=== PATIENT | female | born 1990 | race African-American/Black ===

== ENCOUNTER 2020-08-17 14:25 | Emergency (ER) | payer BC, OTHER ==
[2020-08-17 15:39] LABS: Bilirubin Neg (Negative); Blood, Urine Negative (Negative); Clarity Clear (Clear); Glucose, Urine (Dipstick) Normal (Negative); Ketone, Urine Negative (Negative); Leukocyte 500 (Negative); Nitrite Negative (Negative); Protein, Urine (Dipstick) 15 mg/dl (Neg-Trace); Specific Gravity, Urine 1.015 (1.002-1.036); Urobilinogen Normal mg/dL (Less than 2); pH, Urine 6.5 (5.0-9.0)
[2020-08-17] MEDS ORDERED: Ondansetron PF 4 MG/2 ML Vial ONE (15:45)
[2020-08-17 15:54] LABS: #Monocytes 0.5 10x3/uL (0.0-1.1); #Neutrophils 5.5 10x3/uL (1.5-8.4); %Basophils 0.4 % (0.0-2.0); %Eosinophils 0.4 % (0.0-6.0); %Lymphocytes 23.2 % (18.0-47.0); %Monocytes 6.5 % (0.0-10.0); %Neutrophils 68.4 % (40.0-75.0); Hemoglobin 13.2 g/dL (12.0-15.5); Mean Corpuscular HGB CONC 33.5 g/dL (32.0-36.0); Mean Corpuscular Hemoglobin 29.9 pg (27.0-33.0); Mean Corpuscular Volume 89.3 fl (81.6-98.3); Mean Platelet Volume 9.2 fl (7.4-10.4); Platelet Count 286 10x3/uL (150-450); RBC Distribution Width 12.5 % (11.5-14.5); Red Blood Cell (RBC) Count 4.41 10x6/uL (3.90-5.03)
[2020-08-17 16:05] LABS: ALT (SGPT) 13 U/L (8-55); AST (SGOT) 15 U/L (5-34); Alkaline Phosphatase 42 U/L (40-110); Anion Gap 11 mmol/L (10-20); BUN (Urea Nitrogen) 6 mg/dL (7.0-18.7); Bilirubin, Total 0.4 mg/dL (0.2-1.2); Calc. Creatinine Clearance 0 mL/min (70-130); Calcium 9.1 mg/dL (7.8-10.44); Carbon Dioxide 23 mmol/L (22-29); Chloride 106 mmol/L (98-107); Globulin 3.3 g/dL (2.4-3.5); Glucose 110 mg/dL (70-105); Potassium 3.9 mmol/L (3.5-5.1); Protein, Total 7.3 g/dL (6.0-8.3); Sodium 136 mmol/L (136-145)
[2020-08-17 16:08] LABS: Bacteria/HPF 2+ HPF (None Seen); RBC/HPF 0-3 HPF (0-3)
[2020-08-17 16:09] LABS: Mucous/LPF 1+ LPF (<2+)
== END 2020-08-17 18:03 | disposition home or self-care (01) ==
LOC: CSHERS 14:25
DX: O21.0 Mild hyperemesis gravidarum (principal); Z3A.10 10 weeks gestation of pregnancy
CPT/HCPCS: 80053; 81003; 81015; 84702; 85025; 96374; J2405

== ENCOUNTER 2020-09-04 15:11 | Emergency (ER) | payer BC, OTHER ==
[2020-09-04 16:00] LABS: Bilirubin Neg (Negative); Blood, Urine Negative (Negative); Clarity Clear (Clear); Glucose, Urine (Dipstick) Normal (Negative); Ketone, Urine 5 mg/dL (Negative); Leukocyte 100 (Negative); Nitrite Negative (Negative); Protein, Urine (Dipstick) Negative (Neg-Trace); Urobilinogen Normal mg/dL (Less than 2)
[2020-09-04 16:10] LABS: Bacteria/HPF Rare-Few HPF (None Seen); RBC/HPF 0-3 HPF (0-3); Squamous Epithelial 0-3 HPF (0-3); WBC/HPF 0-3 HPF (0-3)
[2020-09-04 16:11] LABS: Mucous/LPF Rare LPF (<2+)
[2020-09-04 16:22] LABS: #Eosinphils 0.1 10x3/uL (0.0-0.5); #Monocytes 0.6 10x3/uL (0.0-1.1); #Neutrophils 5.2 10x3/uL (1.5-8.4); %Basophils 0.3 % (0.0-2.0); %Eosinophils 0.7 % (0.0-6.0); %Lymphocytes 22.8 % (18.0-47.0); %Monocytes 7.2 % (0.0-10.0); %Neutrophils 68.1 % (40.0-75.0); Hemoglobin 12.5 g/dL (12.0-15.5); Mean Corpuscular HGB CONC 34.3 g/dL (32.0-36.0); Mean Corpuscular Hemoglobin 30.3 pg (27.0-33.0); Mean Corpuscular Volume 88.1 fl (81.6-98.3); Mean Platelet Volume 9.1 fl (7.4-10.4); Platelet Count 271 10x3/uL (150-450); RBC Distribution Width 12.5 % (11.5-14.5); Red Blood Cell (RBC) Count 4.13 10x6/uL (3.90-5.03); White Blood Cell (WBC) Count 7.6 10x3/uL (3.5-10.5)
[2020-09-04 16:33] LABS: Anion Gap 13 mmol/L (10-20); BUN (Urea Nitrogen) 5 mg/dL (7.0-18.7); Calc. Creatinine Clearance 0 mL/min (70-130); Calcium 8.8 mg/dL (7.8-10.44); Carbon Dioxide 19 mmol/L (22-29); Chloride 106 mmol/L (98-107); Glucose 83 mg/dL (70-105); Potassium 3.9 mmol/L (3.5-5.1); Sodium 134 mmol/L (136-145)
== END 2020-09-04 17:46 | disposition home or self-care (01) ==
LOC: CSHERS 15:11
DX: O23.41 Unspecified infection of urinary tract in pregnancy, first trimester (principal); Z3A.13 13 weeks gestation of pregnancy
CPT/HCPCS: 76815; 80048; 81003; 81015; 84702; 85025

== ENCOUNTER 2020-09-16 11:25 | Emergency (ER) | payer BC, OTHER ==
[2020-09-16] MEDS ORDERED: Acetaminophen 500 MG TAB ONE (12:30)
[2020-09-16 12:36] LABS: #Eosinphils 0.1 10x3/uL (0.0-0.5); #Monocytes 0.5 10x3/uL (0.0-1.1); #Neutrophils 4.9 10x3/uL (1.5-8.4); %Basophils 0.3 % (0.0-2.0); %Eosinophils 1.1 % (0.0-6.0); %Lymphocytes 25.3 % (18.0-47.0); %Monocytes 7.2 % (0.0-10.0); %Neutrophils 65.2 % (40.0-75.0); Bilirubin Neg (Negative); Blood, Urine Negative (Negative); Clarity Clear (Clear); Glucose, Urine (Dipstick) Normal (Negative); Hemoglobin 13.2 g/dL (12.0-15.5); Ketone, Urine Negative (Negative); Leukocyte 100 (Negative); Mean Corpuscular HGB CONC 34.3 g/dL (32.0-36.0); Mean Corpuscular Hemoglobin 30.8 pg (27.0-33.0); Mean Corpuscular Volume 89.7 fl (81.6-98.3); Mean Platelet Volume 9.2 fl (7.4-10.4); Nitrite Negative (Negative); Platelet Count 256 10x3/uL (150-450); Protein, Urine (Dipstick) Negative (Neg-Trace); RBC Distribution Width 12.8 % (11.5-14.5); Red Blood Cell (RBC) Count 4.29 10x6/uL (3.90-5.03); Urobilinogen Normal mg/dL (Less than 2); White Blood Cell (WBC) Count 7.5 10x3/uL (3.5-10.5)
[2020-09-16 12:49] LABS: RBC/HPF 0-3 HPF (0-3); Transitional Epithelial 0-3 HPF (None Seen); WBC/HPF 0-3 HPF (0-3)
[2020-09-16 12:50] LABS: Bacteria/HPF Rare-Few HPF (None Seen); Mucous/LPF Rare LPF (<2+)
[2020-09-16 12:51] LABS: ALT (SGPT) 12 U/L (8-55); AST (SGOT) 16 U/L (5-34); Albumin 3.7 g/dL (3.5-5.0); Alkaline Phosphatase 36 U/L (40-110); Anion Gap 11 mmol/L (10-20); BUN (Urea Nitrogen) 5 mg/dL (7.0-18.7); Bilirubin, Total 0.3 mg/dL (0.2-1.2); Calc. Creatinine Clearance 0 mL/min (70-130); Calcium 8.8 mg/dL (7.8-10.44); Carbon Dioxide 24 mmol/L (22-29); Chloride 106 mmol/L (98-107); Globulin 3.1 g/dL (2.4-3.5); Glucose 87 mg/dL (70-105); Protein, Total 6.8 g/dL (6.0-8.3); Sodium 137 mmol/L (136-145)
== END 2020-09-16 13:24 | disposition home or self-care (01) ==
LOC: CSHERS 11:25
DX: O99.891 Other specified diseases and conditions complicating pregnancy (principal); R10.30 Lower abdominal pain, unspecified; Z3A.16 16 weeks gestation of pregnancy
CPT/HCPCS: 76815; 80053; 81003; 81015; 85025

== ENCOUNTER 2020-10-04 19:00 | Emergency (ER) | payer BC, OTHER | END 2020-10-04 21:35 | disposition home or self-care (01) | LOC: CSHERS 19:00 | DX: O26.892 Other specified pregnancy related conditions, second trimester (principal); R10.9 Unspecified abdominal pain; Z3A.17 17 weeks gestation of pregnancy ==

== ENCOUNTER 2020-10-12 14:31 | Emergency (ER) | payer BC, OTHER ==
[2020-10-12 16:28] LABS: Bilirubin Neg (Negative); Blood, Urine Negative (Negative); Clarity Clear (Clear); Glucose, Urine (Dipstick) Normal (Negative); Ketone, Urine Negative (Negative); Leukocyte 25 (Negative); Nitrite Negative (Negative); Protein, Urine (Dipstick) Negative (Neg-Trace); Urobilinogen Normal mg/dL (Less than 2)
[2020-10-12] MEDS ORDERED: Acetaminophen 500 MG TAB ONE (16:34)
[2020-10-12 16:47] LABS: RBC/HPF 0-3 HPF (0-3)
[2020-10-12 16:49] LABS: Bacteria/HPF Rare-Few HPF (None Seen); Squamous Epithelial 0-3 HPF (0-3); WBC/HPF 0-3 HPF (0-3)
== END 2020-10-12 17:57 | disposition home or self-care (01) ==
LOC: CSHERS 14:31
DX: O26.892 Other specified pregnancy related conditions, second trimester (principal); R10.9 Unspecified abdominal pain; O44.02 Complete placenta previa NOS or without hemorrhage, second trimester; Z3A.18 18 weeks gestation of pregnancy
CPT/HCPCS: 76815; 81003; 81015; 87086

== ENCOUNTER 2020-11-09 22:53 | Day surgery (SDC) | payer BC, OTHER ==
[2020-11-09 23:23] VITALS: BMI 25.9
[2020-11-10] MEDS ORDERED: hydrALAZINE 20 MG/ML VIAL SLOW IVP PRN (00:26)
[2020-11-10 00:34] LABS: Bilirubin Neg (Negative); Blood, Urine Negative (Negative); Clarity Clear (Clear); Glucose, Urine (Dipstick) 100 mg/dL (Negative); Ketone, Urine Negative (Negative); Leukocyte Negative (Negative); Nitrite Negative (Negative); Protein, Urine (Dipstick) Negative (Neg-Trace); Urobilinogen Normal mg/dL (Less than 2)
== END 2020-11-10 01:39 | disposition home or self-care (01) ==
LOC: CSHLD/OP 22:53
PROVIDERS: ATTEND Obstetrics & Gynecology
DX: O44.22 Partial placenta previa NOS or without hemorrhage, second trimester (principal); O32.1XX0 Maternal care for breech presentation, not applicable or unspecified; O60.02 Preterm labor without delivery, second trimester; Z3A.22 22 weeks gestation of pregnancy
CPT/HCPCS: 76815; 81003; 99283

== ENCOUNTER 2021-01-15 15:58 | Day surgery (SDC) | payer BC, OTHER ==
[2021-01-15 16:24] VITALS: BMI 25.0
[2021-01-15] MEDS ORDERED: hydrALAZINE 20 MG/ML VIAL SLOW IVP PRN (17:03)
[2021-01-15] MEDS ORDERED: Acetaminophen 500 MG TAB PO SCH (17:15)
[2021-01-15 20:16] LABS: #Monocytes 0.7 10x3/uL (0.0-1.1); #Neutrophils 5.6 10x3/uL (1.5-8.4); %Basophils 0.4 % (0.0-2.0); %Eosinophils 0.2 % (0.0-6.0); %Lymphocytes 21.5 % (18.0-47.0); %Monocytes 8.8 % (0.0-10.0); %Neutrophils 67.1 % (40.0-75.0); Hemoglobin 12.6 g/dL (12.0-15.5); Mean Corpuscular HGB CONC 34.5 g/dL (32.0-36.0); Mean Corpuscular Hemoglobin 31.1 pg (27.0-33.0); Mean Corpuscular Volume 90.1 fl (81.6-98.3); Mean Platelet Volume 9.9 fl (7.4-10.4); Platelet Count 188 10x3/uL (150-450); RBC Distribution Width 12.9 % (11.5-14.5); Red Blood Cell (RBC) Count 4.05 10x6/uL (3.90-5.03); White Blood Cell (WBC) Count 8.4 10x3/uL (3.5-10.5)
[2021-01-15 20:25] LABS: ALT (SGPT) 8 U/L (8-55); AST (SGOT) 12 U/L (5-34); Albumin 3.3 g/dL (3.5-5.0); Alkaline Phosphatase 56 U/L (40-110); Anion Gap 12 mmol/L (10-20); BUN (Urea Nitrogen) 5 mg/dL (7.0-18.7); Bilirubin, Total 0.4 mg/dL (0.2-1.2); Calc. Creatinine Clearance 126 mL/min (70-130); Calcium 9.1 mg/dL (7.8-10.44); Carbon Dioxide 21 mmol/L (22-29); Chloride 108 mmol/L (98-107); Globulin 3.2 g/dL (2.4-3.5); Glucose 78 mg/dL (70-105); Potassium 3.7 mmol/L (3.5-5.1); Protein, Total 6.5 g/dL (6.0-8.3); Sodium 137 mmol/L (136-145)
== END 2021-01-15 21:55 | disposition home or self-care (01) ==
LOC: CSHLD/OP 15:58
PROVIDERS: ATTEND Student in an Organized Health Care Education/Training Program
DX: O99.891 Other specified diseases and conditions complicating pregnancy (principal); R10.31 Right lower quadrant pain; M25.551 Pain in right hip; O09.213 Supervision of pregnancy with history of pre-term labor, third trimester; Z3A.32 32 weeks gestation of pregnancy
CPT/HCPCS: 36415; 76815; 80053; 85025; 99283

== ENCOUNTER 2021-02-01 13:22 | Observation (INO) | payer BC, OTHER ==
[2021-02-01] MEDS ORDERED: Betamet Acet/Betamet Na Ph 30 MG/5 ML VIAL ONE (15:33)
[2021-02-01 15:38] VITALS: BMI 24.5
[2021-02-01] MEDS ORDERED: hydrALAZINE 20 MG/ML VIAL SLOW IVP PRN (15:48)
[2021-02-01] MEDS ORDERED: Zolpidem Tartrate 5 MG TAB PO PRN (15:48)
[2021-02-01] MEDS ORDERED: Ondansetron PF 4 MG/2 ML Vial IVP PRN (15:48)
[2021-02-01] MEDS ORDERED: Acetaminophen 500 MG TAB PO PRN (15:48)
[2021-02-01] MEDS ORDERED: Lactated Ringer's 1,000 ML IV SCH (16:00)
[2021-02-01] MEDS ORDERED: Penicillin G Potassium 5 MILL.UNITS in Sodium Chloride 0.9% 100 ML IVPB SCH (16:00)
[2021-02-01] MEDS: Betamet Acet/Betamet Na Ph 30 MG/5 ML VIAL IM SCH (16:12)
[2021-02-01 17:59] LABS: SARS-CoV-2 NAA Rapid Test Not Detected (NotDetected)
[2021-02-01 18:44] LABS: Hemoglobin 13.3 g/dL (12.0-15.5); Mean Corpuscular HGB CONC 33.4 g/dL (32.0-36.0); Mean Corpuscular Hemoglobin 30.8 pg (27.0-33.0); Mean Corpuscular Volume 92.1 fl (81.6-98.3); Mean Platelet Volume 9.8 fl (7.4-10.4); Platelet Count 186 10x3/uL (150-450); Red Blood Cell (RBC) Count 4.32 10x6/uL (3.90-5.03)
[2021-02-01] MEDS: Lactated Ringer's 1,000 ML IV SCH (19:34)
[2021-02-02] MEDS: Lactated Ringer's 1,000 ML IV SCH ×2 (08:57→15:37)
[2021-02-02] MEDS: Betamet Acet/Betamet Na Ph 30 MG/5 ML VIAL IM SCH (16:16)
== END 2021-02-02 18:00 | disposition home health service (06) ==
LOC: CSHLD/OP 13:22 → CSHLD 19:57 → INTOOBSV 19:57
PROVIDERS: ADMIT Obstetrics & Gynecology; ATTEND Obstetrics & Gynecology
DX: O60.03 Preterm labor without delivery, third trimester (principal); O46.93 Antepartum hemorrhage, unspecified, third trimester; O99.343 Other mental disorders complicating pregnancy, third trimester; F41.0 Panic disorder [episodic paroxysmal anxiety]; Z3A.34 34 weeks gestation of pregnancy; Z20.822 Contact with and (suspected) exposure to COVID-19; Z87.59 Personal history of other complications of pregnancy, childbirth and the puerperium; Z79.899 Other long term (current) drug therapy; Z91.81 History of falling
CPT/HCPCS: 36415; 59025; 76815; 85027; 86850; 86900; 86901; 87081; 96372; 96374; 99285; G0378; J0702; J2540; J3490; J7120; U0002

== ENCOUNTER 2021-04-07 15:49 | Emergency (ER) | payer BC, OTHER ==
[2021-04-07 16:54] LABS: Bilirubin Neg (Negative); Blood, Urine 250 (Negative); Glucose, Urine (Dipstick) Normal (Negative); Ketone, Urine Negative (Negative); Leukocyte 25 (Negative); Nitrite Negative (Negative); Protein, Urine (Dipstick) 30 mg/dl (Neg-Trace); Specific Gravity, Urine 1.015 (1.002-1.036); Urobilinogen Normal mg/dL (Less than 2)
[2021-04-07 17:02] LABS: Clarity Clear (Clear)
[2021-04-07 17:04] LABS: Bacteria/HPF None Seen HPF (None Seen); RBC/HPF Greater than 50 HPF (0-3); Squamous Epithelial 0-3 HPF (0-3); WBC/HPF 0-3 HPF (0-3)
[2021-04-07 17:27] LABS: #Monocytes 0.4 10x3/uL (0.0-1.1); #Neutrophils 2.1 10x3/uL (1.5-8.4); %Basophils 0.6 % (0.0-2.0); %Eosinophils 0.9 % (0.0-6.0); %Lymphocytes 43.3 % (18.0-47.0); %Monocytes 9.4 % (0.0-10.0); %Neutrophils 45.6 % (40.0-75.0); Hemoglobin 12.8 g/dL (12.0-15.5); Mean Corpuscular HGB CONC 32.9 g/dL (32.0-36.0); Mean Corpuscular Volume 91.1 fl (81.6-98.3); Mean Platelet Volume 9.8 fl (7.4-10.4); Platelet Count 290 10x3/uL (150-450); RBC Distribution Width 12.2 % (11.5-14.5); Red Blood Cell (RBC) Count 4.27 10x6/uL (3.90-5.03); White Blood Cell (WBC) Count 4.7 10x3/uL (3.5-10.5)
== END 2021-04-07 18:27 | disposition home or self-care (01) ==
LOC: CSHERS 15:49
DX: N93.9 Abnormal uterine and vaginal bleeding, unspecified (principal)
CPT/HCPCS: 36415; 76856; 81003; 81015; 85025

== ENCOUNTER 2021-09-15 16:39 | Observation (INO) | payer BC, OTHER ==
[2021-09-15 17:08] LABS: #Basophils 0.1 10x3/uL (0.0-0.2); #Eosinphils 0.2 10x3/uL (0.0-0.5); #Monocytes 0.4 10x3/uL (0.0-1.1); #Neutrophils 2.7 10x3/uL (1.5-8.4); %Basophils 1.1 % (0.0-2.0); %Eosinophils 4.1 % (0.0-6.0); %Lymphocytes 39.2 % (18.0-47.0); %Monocytes 7.8 % (0.0-10.0); %Neutrophils 47.4 % (40.0-75.0); Mean Corpuscular HGB CONC 33.8 g/dL (32.0-36.0); Mean Corpuscular Hemoglobin 30.4 pg (27.0-33.0); Platelet Count 369 10x3/uL (150-450); RBC Distribution Width 12.1 % (11.5-14.5); Red Blood Cell (RBC) Count 4.28 10x6/uL (3.90-5.03); White Blood Cell (WBC) Count 5.7 10x3/uL (3.5-10.5)
[2021-09-15 17:20] LABS: ALT (SGPT) 8 U/L (8-55); AST (SGOT) 15 U/L (5-34); Albumin 4.2 g/dL (3.5-5.0); Alkaline Phosphatase 45 U/L (40-110); Anion Gap 12 mmol/L (10-20); BUN (Urea Nitrogen) 7 mg/dL (7.0-18.7); Bilirubin, Total 0.3 mg/dL (0.2-1.2); Calc. Creatinine Clearance 0 mL/min (70-130); Calcium 9.9 mg/dL (7.8-10.44); Carbon Dioxide 25 mmol/L (22-29); Chloride 104 mmol/L (98-107); Globulin 3.4 g/dL (2.4-3.5); Glucose 114 mg/dL (70-105); Potassium 3.6 mmol/L (3.5-5.1); Protein, Total 7.6 g/dL (6.0-8.3); Sodium 137 mmol/L (136-145)
[2021-09-15 23:20] VITALS: BMI 26.2
[2021-09-16] MEDS ORDERED: Sodium Chloride 0.9% 1,000 ML IV SCH ×2 (00:01→08:15)
[2021-09-16 10:18] LABS: #Basophils 0.1 10x3/uL (0.0-0.2); #Eosinphils 0.2 10x3/uL (0.0-0.5); #Monocytes 0.4 10x3/uL (0.0-1.1); #Neutrophils 2.2 10x3/uL (1.5-8.4); %Basophils 1.5 % (0.0-2.0); %Eosinophils 4.8 % (0.0-6.0); %Lymphocytes 39.5 % (18.0-47.0); %Monocytes 8.4 % (0.0-10.0); %Neutrophils 45.2 % (40.0-75.0); Hemoglobin 12.2 g/dL (12.0-15.5); Mean Corpuscular HGB CONC 34.4 g/dL (32.0-36.0); Mean Corpuscular Hemoglobin 30.2 pg (27.0-33.0); Mean Corpuscular Volume 87.9 fl (81.6-98.3); Mean Platelet Volume 8.9 fl (7.4-10.4); Platelet Count 298 10x3/uL (150-450); RBC Distribution Width 12.2 % (11.5-14.5); Red Blood Cell (RBC) Count 4.04 10x6/uL (3.90-5.03); White Blood Cell (WBC) Count 4.8 10x3/uL (3.5-10.5)
[2021-09-16] MEDS ORDERED: Lidocaine 1% PF 5 ML VIAL ONE (16:02)
[2021-09-16] MEDS ORDERED: Ondansetron PF 4 MG/2 ML Vial ONE ×2 (16:02→17:16)
[2021-09-16] MEDS ORDERED: Fentanyl 100 MCG/2 ML VIAL ONE ×3 (16:02→18:15)
[2021-09-16] MEDS ORDERED: PROPOFOL 20 ML ONE (16:02)
[2021-09-16] MEDS ORDERED: Rocuronium Bromide 10 MG/ML (10ML VIAL) ONE (16:02)
[2021-09-16] MEDS ORDERED: Succinylcholine 200 MG/10 ml SYRINGE FS ONE (16:02)
[2021-09-16] MEDS ORDERED: Famotidine/PF 20 mg/2ml Vial ONE (16:09)
[2021-09-16] MEDS ORDERED: Scopolamine 1.5 mg/72 hour Patch ONE (16:09)
[2021-09-16] MEDS ORDERED: Midazolam HCl 2 mg/2 ml Vial ONE (16:09)
[2021-09-16] MEDS ORDERED: Dexamethasone 20 MG/5 ML VIAL ONE (16:30)
[2021-09-16] MEDS ORDERED: CEFAZOLIN 1 GM VIAL ONE (16:36)
[2021-09-16] MEDS ORDERED: Bupivacaine PF 0.5% 30 ML VIAL ONE (17:13)
[2021-09-16] MEDS ORDERED: EPINEPHrine 1 MG/ML AMP ONE (17:13)
[2021-09-16] MEDS ORDERED: Ketorolac Tromethamine 30 MG/ML VIAL ONE (17:48)
[2021-09-16] MEDS ORDERED: Glycopyrrolate 0.2 MG/ML 5 ML SYRINGE ONE (17:54)
[2021-09-16 19:59] LABS: SARS-CoV-2 PCR by NAA Not Detected (NotDetected)
[2021-09-16 22:15] VITALS: BP 113/63; TEMP 98.4
== END 2021-09-16 20:57 | disposition home or self-care (01) ==
LOC: CSHERS 16:39 → UNDOADMOB 21:18 → INTOOBSV 21:18 → CSHPP 21:18
PROVIDERS: ADMIT Obstetrics & Gynecology; ATTEND Obstetrics & Gynecology
PROC: 0UDB7ZX Extraction of Endometrium, Via Natural or Artificial Opening, Diagnostic (ICD-10-PCS; principal; 2021-09-16)
PROC: 10T24ZZ Resection of Products of Conception, Ectopic, Percutaneous Endoscopic Approach (ICD-10-PCS; 2021-09-16)
DX: O00.101 Right tubal pregnancy without intrauterine pregnancy (principal); O08.1 Delayed or excessive hemorrhage following ectopic and molar pregnancy; Z20.822 Contact with and (suspected) exposure to COVID-19
CPT/HCPCS: 36415; 76856; 80053; 84702; 85025; 86850; 86900; 86901; 88305; 88331; G0378; J0171; J0690; J1100; J1885; J2250; J2405; J2704; J3010; J7050; S0020; S0028; U0003; U0005

== ENCOUNTER 2021-09-23 18:20 | Emergency (ER) | payer BC, OTHER | END 2021-09-23 20:15 | disposition home or self-care (01) | LOC: CSHERS 18:20 | DX: Z48.00 Encounter for change or removal of nonsurgical wound dressing (principal) | CPT/HCPCS: 99283 ==

== ENCOUNTER 2021-10-03 15:00 | Emergency (ER) | payer BC, OTHER ==
[2021-10-03 15:27] LABS: #Monocytes 0.3 10x3/uL (0.0-1.1); #Neutrophils 1.9 10x3/uL (1.5-8.4); %Basophils 0.8 % (0.0-2.0); %Eosinophils 1.1 % (0.0-6.0); %Monocytes 9.4 % (0.0-10.0); %Neutrophils 53.1 % (40.0-75.0); Hemoglobin 10.8 g/dL (12.0-15.5); Mean Corpuscular HGB CONC 33.1 g/dL (32.0-36.0); Mean Corpuscular Hemoglobin 29.9 pg (27.0-33.0); Mean Corpuscular Volume 90.3 fl (81.6-98.3); Mean Platelet Volume 9.1 fl (7.4-10.4); Platelet Count 271 10x3/uL (150-450); RBC Distribution Width 11.9 % (11.5-14.5); Red Blood Cell (RBC) Count 3.61 10x6/uL (3.90-5.03); White Blood Cell (WBC) Count 3.6 10x3/uL (3.5-10.5)
[2021-10-03 15:48] LABS: ALT (SGPT) 7 U/L (8-55); AST (SGOT) 11 U/L (5-34); Albumin 3.5 g/dL (3.5-5.0); Alkaline Phosphatase 43 U/L (40-110); Anion Gap 15 mmol/L (10-20); BUN (Urea Nitrogen) 6 mg/dL (7.0-18.7); Bilirubin, Total 0.3 mg/dL (0.2-1.2); Calc. Creatinine Clearance 0 mL/min (70-130); Calcium 8.2 mg/dL (7.8-10.44); Carbon Dioxide 21 mmol/L (22-29); Chloride 109 mmol/L (98-107); Globulin 2.3 g/dL (2.4-3.5); Glucose 103 mg/dL (70-105); Lipase 19 U/L (8-78); Potassium 3.7 mmol/L (3.5-5.1); Protein, Total 5.8 g/dL (6.0-8.3); Sodium 141 mmol/L (136-145)
[2021-10-03 15:53] LABS: BHCG - Serum POSITIVE (NEGATIVE); Pregs Control Background? CLEAR/WHITE (CLR/WHITE); Pregs Control Bar Appear? YES (CONTROL BAR)
[2021-10-03] MEDS ORDERED: Acetaminophen 500 MG TAB ONE (16:11)
== END 2021-10-03 18:40 | disposition home or self-care (01) ==
LOC: CSHERS 15:00
DX: O21.9 Vomiting of pregnancy, unspecified (principal); O99.891 Other specified diseases and conditions complicating pregnancy; R19.7 Diarrhea, unspecified
CPT/HCPCS: 36415; 80053; 83690; 84702; 84703; 85025; 93005; 99284

== ENCOUNTER 2021-12-24 09:28 | Emergency (ER) | payer OTHER, BC | END 2021-12-24 10:45 | disposition home or self-care (01) | LOC: CSHERS 09:28 | DX: R11.2 Nausea with vomiting, unspecified (principal); R19.7 Diarrhea, unspecified | CPT/HCPCS: 99283 ==

== ENCOUNTER 2022-02-11 18:07 | Emergency (ER) | payer BC, OTHER ==
[2022-02-11 18:35] LABS: Bilirubin Neg (Negative); Blood, Urine Negative (Negative); Clarity Clear (Clear); Glucose, Urine (Dipstick) 100 mg/dL (Negative); Ketone, Urine 5 mg/dL (Negative); Leukocyte Negative (Negative); Nitrite Negative (Negative); Protein, Urine (Dipstick) Negative (Neg-Trace); Specific Gravity, Urine 1.025 (1.002-1.036); Urobilinogen Normal mg/dL (Less than 2)
[2022-02-11 19:27] LABS: #Eosinphils 0.1 10x3/uL (0.0-0.5); #Monocytes 0.6 10x3/uL (0.0-1.1); #Neutrophils 5.3 10x3/uL (1.5-8.4); %Basophils 0.5 % (0.0-2.0); %Eosinophils 1.6 % (0.0-6.0); %Lymphocytes 24.7 % (18.0-47.0); %Monocytes 7.2 % (0.0-10.0); %Neutrophils 65.4 % (40.0-75.0); Hemoglobin 12.5 g/dL (12.0-15.5); Mean Corpuscular HGB CONC 33.8 g/dL (32.0-36.0); Mean Corpuscular Hemoglobin 29.6 pg (27.0-33.0); Mean Corpuscular Volume 87.5 fl (81.6-98.3); Mean Platelet Volume 9.4 fl (7.4-10.4); Platelet Count 303 10x3/uL (150-450); RBC Distribution Width 13.5 % (11.5-14.5); Red Blood Cell (RBC) Count 4.23 10x6/uL (3.90-5.03)
[2022-02-11 19:41] LABS: ALT (SGPT) 8 U/L (8-55); AST (SGOT) 13 U/L (5-34); Albumin 3.8 g/dL (3.5-5.0); Alkaline Phosphatase 38 U/L (40-110); Anion Gap 12 mmol/L (10-20); BUN (Urea Nitrogen) 6 mg/dL (7.0-18.7); Bilirubin, Total 0.1 mg/dL (0.2-1.2); Calc. Creatinine Clearance 0 mL/min (70-130); Calcium 8.9 mg/dL (7.8-10.44); Carbon Dioxide 21 mmol/L (22-29); Chloride 105 mmol/L (98-107); Estimated GFR 106; Globulin 3.2 g/dL (2.4-3.5); Glucose 103 mg/dL (70-105); Lipase 45 U/L (8-78); Potassium 3.7 mmol/L (3.5-5.1); Sodium 134 mmol/L (136-145)
== END 2022-02-11 20:23 | disposition home or self-care (01) ==
LOC: CSHERS 18:07
DX: O99.891 Other specified diseases and conditions complicating pregnancy (principal); R10.2 Pelvic and perineal pain; Z3A.10 10 weeks gestation of pregnancy
CPT/HCPCS: 36415; 80053; 81003; 83690; 84702; 85025; 86900; 86901

== ENCOUNTER 2022-10-04 19:21 | Emergency (ER) | payer BC, OTHER | END 2022-10-04 20:16 | disposition home or self-care (01) | LOC: CSHERS 19:21 | DX: O9A.23 Injury, poisoning and certain other consequences of external causes complicating the puerperium (principal); S29.011A Strain of muscle and tendon of front wall of thorax, initial encounter; X58.XXXA Exposure to other specified factors, initial encounter | CPT/HCPCS: 99283 ==

== ENCOUNTER 2023-06-29 13:42 | Emergency (ER) | payer BC, OTHER ==
[2023-06-29] MEDS ORDERED: Ketorolac Tromethamine 30 MG (1 mL) VIAL ONE (15:02)
[2023-06-29] MEDS ORDERED: Acetaminophen 325 MG TAB ONE (15:21)
[2023-06-29 15:42] LABS: #Basophils 0.1 10x3/uL (0.0-0.2); #Eosinphils 0.1 10x3/uL (0.0-0.5); #Monocytes 0.5 10x3/uL (0.0-1.1); #Neutrophils 2.6 10x3/uL (1.5-8.4); %Basophils 0.9 % (0.0-2.0); %Eosinophils 1.3 % (0.0-6.0); %Lymphocytes 42.7 % (18.0-47.0); %Monocytes 8.6 % (0.0-10.0); %Neutrophils 46.3 % (40.0-75.0); Hematocrit 39.2 % (34.9-44.5); Hemoglobin 13.2 g/dL (12.0-15.5); Mean Corpuscular HGB CONC 33.7 g/dL (32.0-36.0); Mean Corpuscular Hemoglobin 29.9 pg (27.0-33.0); Mean Corpuscular Volume 88.9 fl (81.6-98.3); Mean Platelet Volume 9.2 fl (7.4-10.4); Platelet Count 367 10x3/uL (150-450); Red Blood Cell (RBC) Count 4.41 10x6/uL (3.90-5.03); White Blood Cell (WBC) Count 5.6 10x3/uL (3.5-10.5)
[2023-06-29 15:48] LABS: BHCG - Serum Negative (NEGATIVE); Pregs Control Background? CLEAR/WHITE (CLR/WHITE); Pregs Control Bar Appear? YES (CONTROL BAR)
[2023-06-29 15:50] LABS: ALT (SGPT) 15 U/L (8-55); AST (SGOT) 15 U/L (5-34); Albumin 4.3 g/dL (3.5-5.0); Alkaline Phosphatase 52 U/L (40-110); Anion Gap 9 mmol/L (10-20); BUN (Urea Nitrogen) 7 mg/dL (7.0-18.7); Bilirubin, Total 0.2 mg/dL (0.2-1.2); Calc. Creatinine Clearance 0 mL/min (70-130); Calcium 9.1 mg/dL (7.8-10.44); Carbon Dioxide 26 mmol/L (22-29); Chloride 107 mmol/L (98-107); Estimated GFR 112; Globulin 3.1 g/dL (2.4-3.5); Glucose 94 mg/dL (70-105); Lipase 39 U/L (8-78); Potassium 3.9 mmol/L (3.5-5.1); Protein, Total 7.4 g/dL (6.0-8.3); Sodium 138 mmol/L (136-145)
[2023-06-29 16:04] LABS: Bilirubin Neg (Negative); Blood, Urine Negative (Negative); Clarity Slightly Cloudy (Clear); Glucose, Urine (Dipstick) Normal (Negative); Ketone, Urine Negative (Negative); Leukocyte 25 (Negative); Nitrite Negative (Negative); Protein, Urine (Dipstick) Negative (Neg-Trace); Urobilinogen Normal mg/dL (Less than 2); pH, Urine 6.5 (5.0-9.0)
[2023-06-29 16:20] LABS: Bacteria/HPF 1+ HPF (None Seen); CAUTI Indications for Culture Dysuria,urgency,freq; RBC/HPF None Seen HPF (0-3); WBC/HPF 0-3 HPF (0-3)
[2023-06-29 16:21] LABS: Urine Culture Reflex No No
== END 2023-06-29 16:45 | disposition home or self-care (01) ==
LOC: CSHERS 13:42
DX: R10.31 Right lower quadrant pain (principal)
CPT/HCPCS: 80053; 81001; 83690; 84703; 85025; 87086; 99284; J1885